=== PATIENT | male | born 1960 | race Caucasian/White ===

== ENCOUNTER → 2022-09-12 07:41 | Outpatient (CLI) | payer BC, SELFPAY ==
[2022-09-12 09:21] LABS: Cholesterol 237 mg/dL (140-199); HDL Cholesterol 86 mg/dL (40-60); LDL Cholesterol Calculated 131 mg/dL (<100); Triglycerides 98 mg/dL (35-150)
[2022-09-12 09:51] LABS: Testosterone 251 ng/dL (71.8-623)
[2022-09-12 10:36] LABS: Free T4, Direct Thyroxine 1.06 ng/dL (0.78-2.19)
== END ==
PROVIDERS: PCP Family Medicine; Referring Provider Family Medicine; Visit Provider Family Medicine
DX: M06.9 Rheumatoid arthritis, unspecified (principal); R03.0 Elevated blood-pressure reading, without diagnosis of hypertension; R63.5 Abnormal weight gain
CPT/HCPCS: 36415; 80061; 84403; 84439; 84443

== ENCOUNTER → 2022-10-08 09:26 | Outpatient (CLI) | payer BC, SELFPAY ==
[2022-10-08 10:49] LABS: Prostate Specific Antigen Scrn 0.356 ng/mL (0.1-4.0)
[2022-10-08 10:51] LABS: Testosterone 267 ng/dL (71.8-623)
[2022-10-08 10:57] LABS: Follicle Stimulating Hormone < 0.66 mIU/mL; Luteinizing Hormone 0.443 mIU/mL
== END ==
PROVIDERS: PCP Family Medicine; Referring Provider Family Medicine; Visit Provider Family Medicine
DX: R79.89 Other specified abnormal findings of blood chemistry (principal); Z12.5 Encounter for screening for malignant neoplasm of prostate
CPT/HCPCS: 36415; 83001; 83002; 84403; G0103

== ENCOUNTER → 2022-10-24 08:47 | Outpatient (CLI) | payer BC, SELFPAY ==
--- NOTE | 2022-10-24 08:49 | DI.RAD.S_ITS ---
PROCEDURE: XR HAND RT MIN 3V INDICATIONS: pain Rt 3rd mcp. h/o RA TECHNIQUE: 3 views of the hand(s) acquired. COMPARISON: None. FINDINGS: Bones: No fractures or dislocations. Carpal bones are normally aligned. No suspicious bony lesions. Soft tissues: No suspicious soft tissue calcifications. IMPRESSION: No acute bony abnormality. No radiographic evidence of rheumatoid arthritis. Dictated by: Ford Macario M.D. on 10/24/2022 at 10:45 Approved by: Ford Macario M.D. on 10/24/2022 at 10:45
== END ==
PROVIDERS: PCP Family Medicine; Referring Provider Family Medicine; Visit Provider Family Medicine
DX: M06.9 Rheumatoid arthritis, unspecified (principal)
CPT/HCPCS: 73130

== ENCOUNTER → 2024-10-25 09:11 | Outpatient (CLI) | payer BC, SELFPAY ==
--- NOTE | 2024-10-25 09:25 | DI.RAD.S_ITS ---
PROCEDURE: XR CHEST 2V INDICATIONS: CHRONIC COUGH TECHNIQUE: 2 views of the chest were acquired. COMPARISON: None. FINDINGS: Surgical changes and devices: None. Lungs and pleura: Lungs are clear. No pleural effusions or pneumothorax. Mediastinum: Mediastinal contours are normal. Heart size is normal. Bones and chest wall: No suspicious bony abnormalities. Soft tissues appear unremarkable. IMPRESSION: No acute cardiopulmonary abnormality is seen. Dictated by: Hector Jean M.D. on 10/26/2024 at 18:21 Approved by: Hector Jean M.D. on 10/26/2024 at 18:22
== END ==
PROVIDERS: PCP Family Medicine; Referring Provider Otolaryngology; Visit Provider Otolaryngology
DX: R05.3 Chronic cough (principal)
CPT/HCPCS: 71046